=== PATIENT | female | born 1965 | race Hispanic/Latino ===

== ENCOUNTER 2018-01-21 16:52 | Emergency (ER) | payer OTHER, MEDICARE ==
[2018-01-21] MEDS ORDERED: LIDOCAINE HCL-MPF 1% 2ML VIAL ONE (17:19)
[2018-01-21] MEDS ORDERED: IBUPROFEN 600 MG TABLET ONE (18:00)
[2018-01-21] MEDS ORDERED: ACETAMINOPHEN-CODEINE 300/30MG TAB ONE (18:00)
== END 2018-01-21 18:24 | disposition home or self-care (01) ==
LOC: EDH 16:52
DX: H66.92 Otitis media, unspecified, left ear (principal); E11.9 Type 2 diabetes mellitus without complications; I10 Essential (primary) hypertension; Z88.0 Allergy status to penicillin; Z88.2 Allergy status to sulfonamides
CPT/HCPCS: 99284; J3490

== ENCOUNTER 2018-04-19 13:01 | Emergency (ER) | payer OTHER, MEDICARE | END 2018-04-19 14:32 | disposition home or self-care (01) | LOC: EDH 13:01 | DX: S76.912A Strain of unspecified muscles, fascia and tendons at thigh level, left thigh, initial encounter (principal); M25.552 Pain in left hip; E11.9 Type 2 diabetes mellitus without complications; I10 Essential (primary) hypertension; Z98.890 Other specified postprocedural states; Z88.0 Allergy status to penicillin; Z88.2 Allergy status to sulfonamides; X58.XXXA Exposure to other specified factors, initial encounter; Y93.89 Activity, other specified; Y92.89 Other specified places as the place of occurrence of the external cause; Y99.8 Other external cause status | CPT/HCPCS: 99281 ==

== ENCOUNTER 2019-01-10 17:29 | Emergency (ER) | payer OTHER, MEDICARE ==
[2019-01-10] MEDS ORDERED: MORPHINE SULFATE 4 MG/1ML SYG ONE (18:01)
== END 2019-01-10 21:00 | disposition home or self-care (01) ==
LOC: EDH 17:29
DX: S70.02XA Contusion of left hip, initial encounter (principal); E11.9 Type 2 diabetes mellitus without complications; I10 Essential (primary) hypertension; F32.9 Major depressive disorder, single episode, unspecified; Z88.0 Allergy status to penicillin; Z88.2 Allergy status to sulfonamides; Z98.890 Other specified postprocedural states; W18.39XA Other fall on same level, initial encounter; Y93.89 Activity, other specified; Y92.098 Other place in other non-institutional residence as the place of occurrence of the external cause; Y99.8 Other external cause status
CPT/HCPCS: 72192; 73502; 96372; 99284; J2270

== ENCOUNTER → 2019-02-16 | Outpatient (CLI) | payer OTHER, MEDICARE | END | disposition home or self-care (01) | LOC: OIH 14:55 | PROVIDERS: ATTEND Physician Assistant Medical | DX: K59.00 Constipation, unspecified (principal); M47.816 Spondylosis without myelopathy or radiculopathy, lumbar region | CPT/HCPCS: 74018 ==

== ENCOUNTER → 2019-03-30 | Outpatient (CLI) | payer OTHER, MEDICARE ==
[2019-03-30 08:53] LABS: BASOPHILS % (AUTO) 0.5 % (0.0-5.0); HEMATOCRIT 45.9 % (36-48); LYMPHOCYTES % (AUTO) 38.5 % (21.0-51.0); MEAN CORPUSCULAR HEMOGLOBIN 30.7 pg (27.0-33.0); MEAN CORPUSCULAR HGB CONC 34.5 g/dL (32.0-36.0); MONOCYTES % (AUTO) 5.5 % (3.0-13.0); NEUTROPHILS % (AUTO) 53.5 % (40.0-77.0); NUCLEATED RED BLOOD CELLS 0.2 % (0.0-0.19); PLATELET COUNT (AUTO) 233 K/uL (130-400); RED BLOOD CELL COUNT(AUTO) 5.16 MIL/uL (4.00-5.50); WHITE BLOOD COUNT (AUTO) 7.6 K/uL (4.8-10.8)
[2019-03-30 09:06] LABS: ALBUMIN 3.7 g/dL (3.5-5.0); BILIRUBIN,TOTAL 0.9 mg/dL (0.2-1.0); CREATININE 0.6 mg/dL (0.5-1.5); TOTAL PROTEIN, SERUM 7.6 g/dL (6.0-8.3)
== END | disposition home or self-care (01) ==
LOC: LAB 08:13
PROVIDERS: ATTEND Internal Medicine Gastroenterology
DX: R10.30 Lower abdominal pain, unspecified (principal)
CPT/HCPCS: 36415; 80053; 85025

== ENCOUNTER 2019-08-15 09:11 | Emergency (ER) | payer OTHER, MEDICARE ==
[2019-08-15] MEDS ORDERED: ACETAMINOPHEN 325 MG TAB ONE (10:34)
[2019-08-15] MEDS ORDERED: ALBUTEROL SULFATE 0.083% 2.5 MG/3 ML INH IH ONE (10:40)
== END 2019-08-15 12:00 | disposition home or self-care (01) ==
LOC: EDH 09:11
DX: J20.9 Acute bronchitis, unspecified (principal); J02.0 Streptococcal pharyngitis; I10 Essential (primary) hypertension; E11.9 Type 2 diabetes mellitus without complications; F32.9 Major depressive disorder, single episode, unspecified; Z88.0 Allergy status to penicillin; Z88.2 Allergy status to sulfonamides
CPT/HCPCS: 87804; 87880; 94640

== ENCOUNTER 2019-09-24 15:20 | Emergency (ER) | payer MEDICARE ==
[2019-09-24 16:11] LABS: APPEARANCE,URINE Clear (CLEAR); BILIRUBIN,URINE Negative (NEGATIVE); COLOR,URINE Yellow (YELLOW); GLUCOSE, URINE (UA) Negative (NEGATIVE); KETONES,URINE Negative (NEGATIVE); LEUKOCYTE ESTERASE ,URINE Negative (NEGATIVE); NITRATE,URINE Negative (NEGATIVE); OCCULT BLOOD,URINE Negative (NEGATIVE); PROTEIN,URINE Negative (NEGATIVE); UROBILINOGEN,URINE 0.2 mg/dL (0.2-1.0)
[2019-09-24 16:18] LABS: BASOPHILS % (AUTO) 0.4 % (0.0-5.0); EOSINOPHILS % (AUTO) 4.4 % (0.0-8.0); HEMATOCRIT 44.6 % (36-48); LYMPHOCYTES % (AUTO) 41.8 % (21.0-51.0); MEAN CORPUSCULAR HEMOGLOBIN 28.2 pg (27.0-33.0); MEAN CORPUSCULAR HGB CONC 33.4 g/dL (32.0-36.0); MEAN CORPUSCULAR VOLUME 84.3 fL (79-99); MONOCYTES % (AUTO) 4.8 % (3.0-13.0); NEUTROPHILS % (AUTO) 48.2 % (40.0-77.0); PLATELET COUNT (AUTO) 291 K/uL (130-400); RED BLOOD CELL COUNT(AUTO) 5.29 MIL/uL (4.00-5.50); RED CELL DISTRIBUTION WIDTH 12.5 % (11.0-15.5); WHITE BLOOD COUNT (AUTO) 9.8 K/uL (4.8-10.8)
[2019-09-24 16:34] LABS: CREATININE 0.6 mg/dL (0.5-1.5); POTASSIUM 3.5 mmol/L (3.5-5.1)
[2019-09-24 16:39] LABS: ALBUMIN 4.3 g/dL (3.5-5.0); BILIRUBIN,TOTAL 0.9 mg/dL (0.2-1.0); TOTAL PROTEIN, SERUM 8.3 g/dL (6.0-8.3)
== END 2019-09-24 17:50 | disposition home or self-care (01) ==
LOC: EDH 15:20
DX: R10.9 Unspecified abdominal pain (principal); R35.0 Frequency of micturition; I10 Essential (primary) hypertension; E11.9 Type 2 diabetes mellitus without complications; F32.9 Major depressive disorder, single episode, unspecified; Z88.0 Allergy status to penicillin; Z88.2 Allergy status to sulfonamides
CPT/HCPCS: 36415; 74176; 80053; 81003; 82550; 84484; 85025; 93005

== ENCOUNTER 2021-03-20 21:21 | Emergency (ER) | payer OTHER, MEDICARE ==
[2021-03-20 21:45] LABS: BASOPHILS % (AUTO) 0.3 % (0.0-5.0); HEMATOCRIT 39.2 % (36-48); LYMPHOCYTES % (AUTO) 29.8 % (21.0-51.0); MEAN CORPUSCULAR HEMOGLOBIN 30.3 pg (27.0-33.0); MEAN CORPUSCULAR HGB CONC 34.4 g/dL (32.0-36.0); MEAN CORPUSCULAR VOLUME 87.9 fL (79-99); MONOCYTES % (AUTO) 4.9 % (3.0-13.0); NEUTROPHILS % (AUTO) 63.7 % (40.0-77.0); PLATELET COUNT (AUTO) 243 K/uL (130-400); RED BLOOD CELL COUNT(AUTO) 4.46 MIL/uL (4.00-5.50); RED CELL DISTRIBUTION WIDTH 12.7 % (11.0-15.5); WHITE BLOOD COUNT (AUTO) 11.6 K/uL (4.8-10.8)
[2021-03-20 21:55] LABS: CARBON DIOXIDE 29 mmol/L (21-32); CHLORIDE 100 mmol/L (101-111); CREATININE 0.6 mg/dL (0.5-1.5); GLOMERULAR FILTR. RATE CALC 111 mL/min (>60); GLUCOSE,RANDOM 273 mg/dL (70-105); POTASSIUM 3.4 mmol/L (3.5-5.1); SODIUM SERUM 134 mmol/L (136-145); UREA NITROGEN, BLOOD 17 mg/dL (7-18)
[2021-03-20 21:59] LABS: ALANINE AMINOTRANSFERASE 21 U/L (12-78); ALBUMIN 3.4 g/dL (3.5-5.0); ASPARTATE AMINOTRANSFERASE 16 U/L (10-37); BILIRUBIN,TOTAL 0.6 mg/dL (0.2-1.0); CREATINE KINASE, TOTAL 61 U/L (21-232); TOTAL PROTEIN, SERUM 6.5 g/dL (6.0-8.3)
[2021-03-20 22:00] LABS: LIPASE < 50 U/L (114-286)
[2021-03-21 00:08] LABS: APPEARANCE,URINE Cloudy (CLEAR); BILIRUBIN,URINE Negative (NEGATIVE); COLOR,URINE Orange (YELLOW); GLUCOSE, URINE (UA) >=1000 mg/dL (NEGATIVE); KETONES,URINE Trace mg/dL (NEGATIVE); LEUKOCYTE ESTERASE ,URINE Small (NEGATIVE); NITRATE,URINE Negative (NEGATIVE); OCCULT BLOOD,URINE Large (NEGATIVE); PH,URINE 5.5 (5.0-8.0); PROTEIN,URINE POS 2+ mg/dL (NEGATIVE)
[2021-03-21 00:15] LABS: BACTERIA,URINE Rare /HPF (None Seen); MUCUS,URINE Moderate LPF (None Seen); SQUAMOUS EPITHELIAL CELL,UR Moderate /HPF (0-2)
[2021-03-21] MEDS ORDERED: POLY17PO4 PO (01:10)
[2021-03-21] MEDS ORDERED: DOCU-116 PO (01:10)
[2021-03-21 01:14] VITALS: BP 118/63
== END 2021-03-21 01:24 | disposition home or self-care (01) ==
LOC: EDH 21:21
DX: E11.65 Type 2 diabetes mellitus with hyperglycemia (principal); N93.9 Abnormal uterine and vaginal bleeding, unspecified; E87.1 Hypo-osmolality and hyponatremia; R10.31 Right lower quadrant pain; I10 Essential (primary) hypertension; Z88.2 Allergy status to sulfonamides; Z88.0 Allergy status to penicillin; Z79.899 Other long term (current) drug therapy
CPT/HCPCS: 36415; 74176; 80053; 81001; 82550; 83690; 84484; 85025

== ENCOUNTER → 2021-12-10 | Outpatient (CLI) | payer OTHER, MEDICARE ==
[~2021-12-10] VITALS: Ht 152.4 cm; Wt 72.6 kg
[~2021-12-10] MED LIST: DOCU-116 PO; POLY17PO4 PO; REGADENOSON 0.4 MG/5 ML PF SYG IVP SCH
== END ==
LOC: SHCH 08:45
PROVIDERS: ATTEND Internal Medicine Cardiovascular Disease
DX: R07.9 Chest pain, unspecified (principal)
CPT/HCPCS: 78452; 93017; 96374; A9500 ×2; J2785

== ENCOUNTER → 2022-08-28 | Outpatient (CLI) | payer OTHER, MEDICARE ==
[~2022-08-28] MED LIST changes: -REGADENOSON 0.4 MG/5 ML PF SYG IVP SCH
== END | disposition home or self-care (01) ==
LOC: RAH 10:37
PROVIDERS: ATTEND Internal Medicine Gastroenterology
DX: R93.3 Abnormal findings on diagnostic imaging of other parts of digestive tract (principal); R68.81 Early satiety; R11.0 Nausea; K31.84 Gastroparesis
CPT/HCPCS: 78264; A9541

== ENCOUNTER → 2024-12-08 | Outpatient (CLI) | payer OTHER, MEDICARE ==
[~2024-12-08] MED LIST changes: +ACET-66 PO; +IBUP-2070 PO; +IOHEXOL-350 75 ML VIAL IV ONE
--- NOTE | 2024-12-08 10:31 | HMCIMG ---
CT ABDOMEN W/CONTRAST HISTORY: Abnormal findings on diagnostic imaging of liver and biliary tract COMPARISON: 03/20/2021 TECHNIQUE: Multiple sequential axial images of the abdomen were obtained from the dome of the diaphragm through iliac crests. Patient was given 75 cc of Omnipaque through intravenous route. Oral contrast was given. FINDINGS: No pleural effusion is seen bilaterally. There is no evidence of parenchymal disease or pulmonary nodule of the visualized lower lungs. Degenerative changes are seen of the thoracolumbar spine. Liver measures 15 cm. No bowel obstruction is seen. The liver, spleen, adrenal glands and pancreas are unremarkable. There is no evidence of hydronephrosis bilaterally. No evidence of renal stone is seen. Fecal material is seen in the colon. There are normal-sized retroperitoneal and mesenteric lymph nodes. No ascites is seen. Atherosclerotic changes are present. IMPRESSION: 1. No acute finding. CT was performed with one or more following dose reduction techniques: automated exposure control, adjustment of the mA and kv according to patient's size, or use of a iterative reconstruction technique.
== END | disposition home or self-care (01) ==
LOC: RAH 08:46
PROVIDERS: ATTEND Internal Medicine Gastroenterology
DX: R93.2 Abnormal findings on diagnostic imaging of liver and biliary tract (principal); M47.815 Spondylosis without myelopathy or radiculopathy, thoracolumbar region; I70.90 Unspecified atherosclerosis
CPT/HCPCS: 74160; Q9967